=== PATIENT | female | born 1965 | race Caucasian/White ===

== ENCOUNTER 2021-11-11 08:48 | Day surgery (SDC) | payer OTHER ==
[~2021-11-11] VITALS: Ht 170.2 cm; Wt 55.8 kg
[2021-11-11] MEDS ORDERED: fentaNYL citrate 0.05 MG/ML VIAL ONE (12:17)
[2021-11-11] MEDS ORDERED: MIDAZOLAM 2 MG/2 ML VIAL ONE (12:18)
[2021-11-11] MEDS ORDERED: MIDAZOLAM 2 MG/2 ML VIAL IVP ONE (14:10)
== END 2021-11-11 13:30 | disposition home or self-care (01) ==
LOC: MDS 08:48 → MMU 08:49 → MDS 13:30
PROVIDERS: ATTEND Internal Medicine Gastroenterology
DX: K21.9 Gastro-esophageal reflux disease without esophagitis (principal); R11.0 Nausea; E11.9 Type 2 diabetes mellitus without complications; M79.7 Fibromyalgia; Z90.710 Acquired absence of both cervix and uterus; Z98.890 Other specified postprocedural states; Z20.822 Contact with and (suspected) exposure to COVID-19
CPT/HCPCS: 43235; 87426; J2250; J3010

== ENCOUNTER 2022-11-01 16:20 | Emergency (ER) | payer OTHER ==
[~2022-11-01] VITALS: Ht 170.2 cm; Wt 63.5 kg
[2022-11-01 17:16] VITALS: BP 141/70
--- NOTE | 2022-11-01 19:30 | NUR ---
PT PLACED IN BED 9
--- NOTE | 2022-11-01 19:37 | NUR ---
DR. GARNETT AT BEDSIDE
--- NOTE | 2022-11-01 19:45 | NUR ---
FIRST CONTACT WITH PT. PT IN POSITION OF COMFORT. PT HAS BEEN MEDICATED. AWAITING XRAY RESULTS.
[2022-11-01] MEDS: KETOROLAC 60 MG/2 ML VIAL IM ONE (19:54)
[2022-11-01] MEDS ORDERED: CEPH500C16 PO (21:57)
[2022-11-01] MEDS ORDERED: IBUP-2213 PO (21:57)
[2022-11-01 22:03] VITALS: BP 138/72
--- NOTE | 2022-11-01 22:03 | NUR ---
Patient discharged with v/s stable. Written and verbal after care instructions given and explained. Patient alert, oriented and verbalized understanding of instructions. Ambulatory with steady gait. All questions addressed prior to discharge. ID band removed. Patient advised to follow up with PMD. Rx of KEFLEX, MOTRIN given. Patient educated on indication of medication including possible reaction and side effects. Opportunity to ask questions provided and answered.
== END 2022-11-01 22:03 | disposition home or self-care (01) ==
LOC: MED 16:20
DX: L03.032 Cellulitis of left toe (principal); E11.9 Type 2 diabetes mellitus without complications; Z90.710 Acquired absence of both cervix and uterus; Z98.890 Other specified postprocedural states; Z88.5 Allergy status to narcotic agent
CPT/HCPCS: 73630; 96372; 99283; J1885